=== PATIENT | male | born 1945 | race Caucasian/White ===

== ENCOUNTER 2019-12-23 10:41 | Inpatient (IN) ==
--- NOTE | 2019-12-23 11:29 | Emergency Department Note ---
History of Present Illness General Chief complaint: Illness Time Seen by Provider: 12/23/19 11:09 History of Present Illness 74-year-old male presents emergency department for difficulty breathing. Per EMS, the patient has been having cough and diffificutly breathing for almost 1 week. Patient reports feeling feverish. He reports no chest pain. He reports mild cough. No hemoptysis. No productive sputum. No abdominal pain. No dysuria or hematuria. No nausea vomiting or diarrhea. Past Med/Surg History Medical History CVA (cerebral vascular accident) Diabetes HTN (hypertension) TIA (transient ischemic attack) Surgical History No pertinent past surgical history Social History Feels Safe at Home: Yes Smoking Status: Never smoker Review of Systems A total of 10 systems reviewed and were otherwise negative Physical Exam Vital Signs Vital Signs - 24 hr 12/23/19 10:50 12/23/19 10:58 12/23/19 11:00 Temperature 37.4 C Temperature Source Oral Pulse Rate 70 91 H 75 Pulse Rate from SpO2 Sensor 80 76 Respiratory Rate 18 Blood Pressure 166/76 H Blood Pressure Mean 106 Pulse Oximetry 95 97 97 Oxygen Delivery Method Nasal Cannula Oxygen Flow Rate 2 Sepsis Recent Fever Within 48 Hours Yes Sepsis New/Unexplained Change in Mental Status No Sepsis Action Taken by Nursing No Action Required 12/23/19 11:01 12/23/19 11:10 12/23/19 11:20 Temperature Temperature Source Pulse Rate 72 74 71 Pulse Rate from SpO2 Sensor 71 75 71 Respiratory Rate Blood Pressure 124/63 Blood Pressure Mean 75 Pulse Oximetry 96 91 95 Oxygen Delivery Method Oxygen Flow Rate Sepsis Recent Fever Within 48 Hours Sepsis New/Unexplained Change in Mental Status Sepsis Action Taken by Nursing 12/23/19 11:30 12/23/19 11:40 Temperature Temperature Source Pulse Rate 71 60 Pulse Rate from SpO2 Sensor 72 59 L Respiratory Rate Blood Pressure 166/76 H Blood Pressure Mean 120 Pulse Oximetry 97 96 Oxygen Delivery Method Oxygen Flow Rate Sepsis Recent Fever Within 48 Hours Sepsis New/Unexplained Change in Mental Status Sepsis Action Taken by Nursing Physical Exam GENERAL: He is oriented to person, place, and time. He appears well-developed and well-nourished. He does not appear distressed. HENT: Exam performed. - Head: Normocephalic and atraumatic. - Right Ear: External ear normal. No mastoid tenderness. - Left Ear: External ear normal. No mastoid tenderness. - Mouth/Throat: The oropharynx is clear and moist. No trismus in the jaw. No dental abscesses or uvula swelling. No oropharyngeal exudate or tonsillar abscesses. EYES: Conjunctivae and EOM are normal. Pupils are equal, round, and reactive to light. Right eye exhibits no discharge. Left eye exhibits no discharge. No scleral icterus. NECK: Normal range of motion. Neck supple. No JVD present. No spinous process tenderness present. No carotid bruit present. No rigidity. No tracheal deviation and normal range of motion present. No Brudzinski's sign and no Kernig's sign noted. CV: Normal rate, regular rhythm, normal heart sounds and intact distal pulses. There is no peripheral edema. Palpable radial pulses bue. PULM/CHEST: Effort normal and breath sounds normal. No respiratory distress. No stridor. He has no wheezes. He has no rales. - Chest Wall: He exhibits no tenderness. ABD: The abdomen is soft. Bowel sounds are normal. He has no distension. No mass is present. There is no tenderness. There is no rebound, no guarding, no Dorantes's sign and no tenderness at McBurney's point. Rovsig negative. MUSC/SKEL: Normal range of motion. There is no peripheral edema, tenderness or deformity. LYMPH: No cervical adenopathy. NEURO: He is alert and oriented to person, place, and time. Left-sided weakness, baseline. SKIN: Skin is warm and dry. He is not diaphoretic. PSYCH: He has a normal mood and affect. Behavior is normal. Judgment and thought content normal. Course Course 1115: The patient was evaluated in room B8. A complete history and physical exam was performed. Patient was placed on continuous pulse oximeter as well as cardiac monitoring. Continuous pulse oximeter showed a saturation of 88% on room air. Patient was applied supplemental oxygen via nasal cannula. Status post 2 L nasal cannula patient's oxygen saturation improved. Patient is not in respiratory distress, he is not tachypneic. We will continue to monitor the patient's oxygen saturation and respiratory rate on the supplemental oxygen. Patient was placed in full airborne precautions for possible COVID-19 infection. Cardiac monitoring: An order was placed for continuous cardiac monitoring. The monitor shows a rate of 70 with sinus rhythm 1240: Vital signs stable on 2 L nasal cannula. Patient remains within normal respiratory rate, no tachypnea. Patient's troponin is elevated. EKG shows no ST elevation or ST depressions. Patient is not reporting any current chest pain. Chest x-ray reviewed by me did not show typical COVID-19 findings of groundglass opacities bilaterally. Given this elevated troponin, the patient's hypoxia, patient will be sent for CTA to rule out PE. 1347: Vital signs stable on 2 L supplemental oxygen. CTA shows no PE however it does show occlusion of the left bronchus, mucous plugging versus obstructing lesion. I did discuss these findings with Dr. Gaviota Calvillo hospitalist who agrees to the admission and states he will contact both cardiology for the elevated troponin as well as pulmonology for the need for bronchoscopy. Patient is in agreement to stay in the hospital. Administered Medications Ioversol (Optiray 320 125ml) 104 ml IV ONCE PRN PRN Reason: Interaction Checking Stop: 12/27/19 13:06 Last Admin: 12/23/19 13:11 Dose: 104 ml Documented by: [id number] Discontinued Medications Aspirin (Aspirin) 324 mg PO NOW STA Stop: 12/23/19 12:39 Last Admin: 12/23/19 13:15 Dose: 324 mg Documented by: [id number] Critical Care Time Critical Care Time: Yes Total Critical Care Time: 76 I have personally spent greater than 76 minutes of critical care time in the direct management of this patient. This includes bedside care, interpretation of diagnostic studies, and testing, discussion with consultants, patient, and family members, and other required patient management activities. This 76 minutes is in excess of all separately billable procedures. Medical Decision Making Laboratory Data Result diagrams: 12/23/19 11:05 12/23/19 11:05 Lab Results 12/23/19 12/23/19 12/23/19 Range/Units 11:05 11:05 11:05 WBC 8.54 (4.8-10.8) K/uL RBC 4.79 (4.7-6.1) M/uL Hgb 14.9 (14.0-18.0) g/dL Hct 43.7 (42-52) % MCV 91.2 (80-100) fL MCH 31.1 (25-34) pg MCHC 34.1 (32-36) g/dL RDW Std Deviation 44.9 (36.4-46.3) fL RDW Coeff of Jian 13.6 (11.5-14.5) % Plt Count 164 (130-400) K/uL MPV 11.6 H (7.4-10.4) fL Immature Gran % (Auto) 0.2 % Neut % (Auto) 89.4 % Lymph % (Auto) 8.2 % [place] % (Auto) 2.0 % Eos % (Auto) 0.1 % Baso % (Auto) 0.1 % Immature Gran # (Auto) 0.02 (0.00-0.02) K/uL Neut # (Auto) 7.63 H (1.4-6.5) K/uL Lymph # (Auto) 0.70 L (1.2-3.4) K/uL [place] # (Auto) 0.17 (0.11-0.59) K/uL Eos # (Auto) 0.01 (0-0.5) K/uL Baso # (Auto) 0.01 (0-0.2) K/uL PT 11.7 (9.0-12.0) Seconds INR 1.1 (0.9-1.1) APTT 25.2 (21.0-31.0) Seconds PTT Ratio 0.9 VBG pH VBG pCO2 VBG pO2 VBG HCO3 VBG O2 Saturation VBG Base Excess Barometric Pressure Sodium 138 (136-145) mmol/L Potassium 3.4 L (3.5-5.1) mmol/L Chloride 105 (98-107) mmol/L Carbon Dioxide 27 (21-32) mmol/L Anion Gap 6.0 (3-11) BUN 15 (7-18) mg/dl Creatinine 1.19 (0.6-1.4) mg/dl Est Cr Clr Drug Dosing 69.5 ml/min Est GFR ( Amer) 70.3 Est GFR (Non-Af Amer) 60.7 BUN/Creatinine Ratio 13.0 (10-20) Glucose 141 H (70-99) mg/dl Lactate (0.4-2.0) mmol/L Calcium 8.8 (8.5-10.1) mg/dl Magnesium 2.2 (1.8-2.4) mg/dl Total Bilirubin 0.7 (0.2-1) mg/dl AST 24 (15-37) U/L ALT 30 (12-78) U/L Alkaline Phosphatase 128 H (45-117) U/L Troponin I 0.065 H* (0-0.045) ng/ml Total Protein 7.8 (6.4-8.2) gm/dl Albumin 3.8 (3.4-5.0) gm/dl Globulin 4.0 (2.5-4.0) gm/dl Albumin/Globulin Ratio 1.0 (0.9-2) Procalcitonin (0-0.5) ng/ml COVID-19 PCR (Negative) 12/23/19 12/23/19 12/23/19 Range/Units 11:05 11:05 12:35 WBC (4.8-10.8) K/uL RBC (4.7-6.1) M/uL Hgb (14.0-18.0) g/dL Hct (42-52) % MCV (80-100) fL MCH (25-34) pg MCHC (32-36) g/dL RDW Std Deviation (36.4-46.3) fL RDW Coeff of Jian (11.5-14.5) % Plt Count (130-400) K/uL MPV (7.4-10.4) fL Immature Gran % (Auto) % Neut % (Auto) % Lymph % (Auto) % [place] % (Auto) % Eos % (Auto) % Baso % (Auto) % Immature Gran # (Auto) (0.00-0.02) K/uL Neut # (Auto) (1.4-6.5) K/uL Lymph # (Auto) (1.2-3.4) K/uL [place] # (Auto) (0.11-0.59) K/uL Eos # (Auto) (0-0.5) K/uL Baso # (Auto) (0-0.2) K/uL PT (9.0-12.0) Seconds INR (0.9-1.1) APTT (21.0-31.0) Seconds PTT Ratio VBG pH VBG pCO2 VBG pO2 VBG HCO3 VBG O2 Saturation VBG Base Excess Barometric Pressure Sodium (136-145) mmol/L Potassium (3.5-5.1) mmol/L Chloride (98-107) mmol/L Carbon Dioxide (21-32) mmol/L Anion Gap (3-11) BUN (7-18) mg/dl Creatinine (0.6-1.4) mg/dl Est Cr Clr Drug Dosing ml/min Est GFR ( Amer) Est GFR (Non-Af Amer) BUN/Creatinine Ratio (10-20) Glucose (70-99) mg/dl Lactate 1.5 (0.4-2.0) mmol/L Calcium (8.5-10.1) mg/dl Magnesium (1.8-2.4) mg/dl Total Bilirubin (0.2-1) mg/dl AST (15-37) U/L ALT (12-78) U/L Alkaline Phosphatase (45-117) U/L Troponin I (0-0.045) ng/ml Total Protein (6.4-8.2) gm/dl Albumin (3.4-5.0) gm/dl Globulin (2.5-4.0) gm/dl Albumin/Globulin Ratio (0.9-2) Procalcitonin 0.05 (0-0.5) ng/ml COVID-19 PCR NEGATIVE (Negative) 12/23/19 12/23/19 Range/Units 12:35 13:24 WBC (4.8-10.8) K/uL RBC (4.7-6.1) M/uL Hgb (14.0-18.0) g/dL Hct (42-52) % MCV (80-100) fL MCH (25-34) pg MCHC (32-36) g/dL RDW Std Deviation (36.4-46.3) fL RDW Coeff of Jian (11.5-14.5) % Plt Count (130-400) K/uL MPV (7.4-10.4) fL Immature Gran % (Auto) % Neut % (Auto) % Lymph % (Auto) % [place] % (Auto) % Eos % (Auto) % Baso % (Auto) % Immature Gran # (Auto) (0.00-0.02) K/uL Neut # (Auto) (1.4-6.5) K/uL Lymph # (Auto) (1.2-3.4) K/uL [place] # (Auto) (0.11-0.59) K/uL Eos # (Auto) (0-0.5) K/uL Baso # (Auto) (0-0.2) K/uL PT (9.0-12.0) Seconds INR (0.9-1.1) APTT (21.0-31.0) Seconds PTT Ratio VBG pH Cancelled 7.34 L VBG pCO2 Cancelled 49 VBG pO2 Cancelled 43 VBG HCO3 Cancelled 26 VBG O2 Saturation Cancelled 74.0 VBG Base Excess Cancelled -0.8 Barometric Pressure Cancelled 733.0 Sodium (136-145) mmol/L Potassium (3.5-5.1) mmol/L Chloride (98-107) mmol/L Carbon Dioxide (21-32) mmol/L Anion Gap (3-11) BUN (7-18) mg/dl Creatinine (0.6-1.4) mg/dl Est Cr Clr Drug Dosing ml/min Est GFR ( Amer) Est GFR (Non-Af Amer) BUN/Creatinine Ratio (10-20) Glucose (70-99) mg/dl Lactate (0.4-2.0) mmol/L Calcium (8.5-10.1) mg/dl Magnesium (1.8-2.4) mg/dl Total Bilirubin (0.2-1) mg/dl AST (15-37) U/L ALT (12-78) U/L Alkaline Phosphatase (45-117) U/L Troponin I (0-0.045) ng/ml Total Protein (6.4-8.2) gm/dl Albumin (3.4-5.0) gm/dl Globulin (2.5-4.0) gm/dl Albumin/Globulin Ratio (0.9-2) Procalcitonin (0-0.5) ng/ml COVID-19 PCR (Negative) Imaging Data Radiologist's Impression: CHEST CTA for PULMONARY ARTERIES CT DOSE: 597.75 mGy.cm HISTORY: Cough. Shortness of breath. TECHNIQUE: Multiaxial CT images of the chest were performed following the intravenous administration of contrast to evaluate the pulmonary arteries. Maximal intensity projection images were also obtained. A dose lowering technique was utilized adhering to the principles of ALARA. COMPARISON STUDY: None. FINDINGS: Mild calcified plaque within the normal caliber thoracic aorta. No evidence for an aortic dissection. Trace pericardial effusion. No pleural effusions. No filling defects within the pulmonary arteries to suggest pulmonary embolus. Limited views] demonstrate a normal spleen and left adrenal gland. 1 cm fat-containing lesion within the right adrenal gland favors a benign myelolipoma. Cluster of perihepatic partially calcified nodules abutting the anterior segment of the right hepatic lobe. Dominant nodule measures 3.8 cm. These are indeterminate but likely benign. These result in mass effect along the right hepatic lobe. The heart is borderline enlarged. Subcentimeter mediastinal bilateral hilar lymph nodes do not meet CT criteria for pathologic involvement. The esophagus is normal in caliber. No suspicious lytic or blastic osseous lesions. No pneumothorax. Focal opacification of the left lower lobe bronchus with partial opacification of the distal left lower lobe bronchi. There is mild diffuse bronchial wall thickening. Patchy airspace consolidation seen within the base of the left lower lobe and mild volume loss within the left lower lobe in comparison to the right. Focal linear density within the right lower lobe posteriorly. A 4 mm nodule within the right lower lobe on image 96 of 256. IMPRESSION: 1. No evidence for pulmonary embolus. 2. Focal opacification of the left lower lobe bronchus with partial opacification of the distal left lower lobe bronchi. This favors mucous plugging. However, given the volume loss within the left lower lobe, an occult obstructing lesion cannot be excluded. Therefore, bronchoscopy recommended for further evaluation. 3. Patchy airspace consolidations within the base of the left lower lobe which may represent atelectasis or pneumonia. This could be secondary to aspiration in conjunction with the partially opacified left lower lobe bronchi. 4. Linear densities within the base of the right lower lobe favor atelectasis. 5. Trace pericardial effusion. 6. Partially calcified right upper quadrant nodules abutting the anterior segment of the right hepatic lobe. These are indeterminate but likely benign. 7. A 4 mm indeterminate pulmonary nodule within the right lower lobe. Please refer to the chart below for recommended follow-up. Please refer to below summary of Fleischner criteria recommendations for follow- up of incidental CT nodules (Joy Morris, Guidelines for management of small pulmonary nodules detected on CT scans: A statement from the Fleischner Society, Radiology 237: [phone].) SOLID NODULES Solitary nodule size: <6 mm * Low risk patients: no follow-up needed * high risk patients: optional CT at 12 months Solitary nodule size: 6-8 mm * Low risk patients: follow-up at 6-12 months, then consider further follow-up at 18-24 months * high risk patients: initial follow-up CT at 6-12 months and then at 18-24 months if no change Solitary nodule size: >8 mm * either low or high risk patients - consider follow-up CT at 3 months, and/or CT-PET, and/or biopsy Multiple nodules size: <6 mm * Low risk patients: no routine follow-up * high risk patients: optional CT at 12 months Multiple nodules size: 6-8 mm * Low risk patients: follow-up at 3-6 months, then consider further follow-up at 18-24 months * high risk patients: follow-up at 3-6 months, then at 18-24 months if no change Multiple nodules size: >8 mm * Low risk patients: follow-up at 3-6 months, then consider further follow-up at 18-24 months * high risk patients: follow-up at 3-6 months, then at 18-24 months if no change Note: newly detected indeterminate nodule in persons 35 years of age or older. * Low risk patients: minimal or absent history of smoking and/or other known risk factors * high risk patients: history of smoking or of other known risk factors (e.g. first degree relative with lung cancer, or exposure to asbestos, radon, uranium) * if a nodule up to 8 mm is partly solid or is ground glass further follow-up is required after 24 months to exclude possible slow growing adenocarcinoma (ARISTIDES) SUBSOLID NODULES Solitary pure ground-glass nodule * nodule size <6 mm - no CT follow-up required * nodule size >=6 mm - follow-up CT at 6-12 months, then every 2 years until 5 years Solitary part-solid nodule * nodule size <6 mm - no CT follow-up required * nodule size >=6 mm - follow-up CT at 3-6 months. If unchanged, and solid component remains <6 mm, then annual follow-up for 5 years Multiple subsolid nodules * nodule size <6 mm - follow-up CT at 3-6 months, consider further follow-up at 2 and 4 years if stable * nodule size >=6 mm - follow-up CT at 3-6 months, subsequent management based on the most suspicious nodule(s) ACT 112: Negative or not required by law. Electronically signed by: Sander Kelly M.D. 12/23/2019 1:27 PM Dictated: 12/23/19 1314 Transcribed: 12/23/19 1314 XR chest 1V portable HISTORY: SEPSIS COMPARISON: None. FINDINGS: No pneumothorax. No pleural effusions. The heart is borderline en larged. This may be exaggerated by the low lung volumes. The right lung is clear. No evidence for pulmonary edema. Increased markings within the left lung base. IMPRESSION: Increased markings within the left lung base favor atelectasis given the low lung volumes. A pneumonia could also have a similar appearance in the appropriate clinical setting. ACT 112: Negative or not required by law. Electronically signed by: Sander Kelly M.D. 12/23/2019 12:45 PM Dictated: 12/23/19 1245 Transcribed: 12/23/19 1245 ECG Data Indication: + SOB/dyspnea Rate (beats per minute): 74 Rhythm: + normal sinus ECG Intervals/blocks: + Normal QRS, + Normal CT and + Normal QT-c ECG ST segments: + Normal ST segments MDM Narrative 1115: The patient was evaluated in room B8. A complete history and physical exam was performed. Patient was placed on continuous pulse oximeter as well as cardiac monitoring. Continuous pulse oximeter showed a saturation of 88% on room air. Patient was applied supplemental oxygen via nasal cannula. Status post 2 L nasal cannula patient's oxygen saturation improved. Patient is not in respiratory distress, he is not tachypneic. We will continue to monitor the patient's oxygen saturation and respiratory rate on the supplemental oxygen. Patient was placed in full airborne precautions for possible COVID-19 infection. Cardiac monitoring: An order was placed for continuous cardiac monitoring. The monitor shows a rate of 70 with sinus rhythm 1240: Vital signs stable on 2 L nasal cannula. Patient remains within normal respiratory rate, no tachypnea. Patient's troponin is elevated. EKG shows no ST elevation or ST depressions. Patient is not reporting any current chest pain. Chest x-ray reviewed by me did not show typical COVID-19 findings of groundglass opacities bilaterally. Given this elevated troponin, the patient's hypoxia, patient will be sent for CTA to rule out PE. 1347: Vital signs stable on 2 L supplemental oxygen. CTA shows no PE however it does show occlusion of the left bronchus, mucous plugging versus obstructing lesion. I did discuss these findings with Dr. Meek [facility] hospitalist who agrees to the admission and states he will contact both cardiology for the elevated troponin as well as pulmonology for the need for bronchoscopy. Patient is in agreement to stay in the hospital. Impression & Plan Hypoxia Discharge Plan Visit Data Chief Complaint: Illness ED Provider: Cedric Kapoor Discharge Problem: Hypoxia Patient Disposition: Being Evaluated by Hospitalist Forms Stand Alone Forms: My [facility] Referrals Referrals: Jones Chirinos [Primary Care Provider] -
[2019-12-23 11:45] LABS: Basophils # (auto) 0.01 K/uL (0-0.2); Basophils % (auto) 0.1 %; Eosinophils # (auto) 0.01 K/uL (0-0.5); Eosinophils % (auto) 0.1 %; Hematocrit (blood only) 43.7 % (42-52); Hemoglobin 14.9 g/dL (14.0-18.0); Immature Granulocytes # (auto) 0.02 K/uL (0.00-0.02); Immature Granulocytes % (auto) 0.2 %; Lymphocytes % (auto) 8.2 %; Mean Corpuscular Hemoglobin 31.1 pg (25-34); Mean Corpuscular Hgb Conc 34.1 g/dL (32-36); Mean Corpuscular Volume 91.2 fL (80-100); Mean Platelet Volume 11.6 fL (7.4-10.4); Monocytes # (auto) 0.17 K/uL (0.11-0.59); Neutrophils # (auto) 7.63 K/uL (1.4-6.5); Neutrophils % (auto) 89.4 %; Platelet Count 164 K/uL (130-400); RDW Coefficient of Variation 13.6 % (11.5-14.5); RDW Standard Deviation 44.9 fL (36.4-46.3); Red Blood Count 4.79 M/uL (4.7-6.1); White Blood Count 8.54 K/uL (4.8-10.8)
[2019-12-23 12:02] LABS: Albumin Level 3.8 gm/dl (3.4-5.0); Calcium 8.8 mg/dl (8.5-10.1); Creatinine Clr Calc Pharmacy 69.5 ml/min; Est GFR (African American) 70.3; Est GFR (Non-African American) 60.7; Magnesium 2.2 mg/dl (1.8-2.4); Potassium 3.4 mmol/L (3.5-5.1)
[2019-12-23 12:05] LABS: INR 1.1 (0.9-1.1); Partial Thromboplastin Ratio 0.9; Partial Thromboplastin Time 25.2 Seconds (21.0-31.0); Prothrombin Time 11.7 Seconds (9.0-12.0)
[2019-12-23 12:09] LABS: Bilirubin,Total 0.7 mg/dl (0.2-1); Total Protein 7.8 gm/dl (6.4-8.2); Troponin I 0.065 ng/ml (0-0.045)
[2019-12-23] MEDS ORDERED: ASPIRIN CHEW 324 MG PO STA (12:38)
--- NOTE | 2019-12-23 12:47 | XRay Report ---
XR chest 1V portable HISTORY: SEPSIS COMPARISON: None. FINDINGS: No pneumothorax. No pleural effusions. The heart is borderline enlarged. This may be exagge rated by the low lung volumes. The right lung is clear. No evidence for pulmonary edema. Increased ma rkings within the left lung base. IMPRESSION: Increased markings within the left lung base favor atelectasis given the low lung volumes. A pneumoni a could also have a similar appearance in the appropriate clinical setting. ACT 112: Negative or not required by law. Electronically signed by: Sander Kelly M.D. 12/23/2019 12:45 PM
[2019-12-23] MEDS ORDERED: OPTIRAY 320 125ml IV PRN (13:07)
--- NOTE | 2019-12-23 13:28 | CT Scan Report ---
CHEST CTA for PULMONARY ARTERIES CT DOSE: 597.75 mGy.cm HISTORY: Cough. Shortness of breath. TECHNIQUE: Multiaxial CT images of the chest were performed following the intravenous administration of contrast to evaluate the pulmonary arteries. Maximal intensity projection images were also obtaine d. A dose lowering technique was utilized adhering to the principles of ALARA. COMPARISON STUDY: None. FINDINGS: Mild calcified plaque within the normal caliber thoracic aorta. No evidence for an aortic d issection. Trace pericardial effusion. No pleural effusions. No filling defects within the pulmonary arteries to suggest pulmonary embolus. Limited views] demonstrate a normal spleen and left adrenal gl and. 1 cm fat-containing lesion within the right adrenal gland favors a benign myelolipoma. Cluster o f perihepatic partially calcified nodules abutting the anterior segment of the right hepatic lobe. Do minant nodule measures 3.8 cm. These are indeterminate but likely benign. These result in mass effect along the right hepatic lobe. The heart is borderline enlarged. Subcentimeter mediastinal bilateral hilar lymph nodes do not meet CT criteria for pathologic involvement. The esophagus is normal in jose l grazyna. No suspicious lytic or blastic osseous lesions. No pneumothorax. Focal opacification of the left lower lobe bronchus with partial opacification of the distal left lower lobe bronchi. There is mild diffuse bronchial wall thickening. Patchy airspace consolidation seen within the base of the left low er lobe and mild volume loss within the left lower lobe in comparison to the right. Focal linear dens ity within the right lower lobe posteriorly. A 4 mm nodule within the right lower lobe on image 96 of 256. IMPRESSION: 1. No evidence for pulmonary embolus. 2. Focal opacification of the left lower lobe bronchus with partial opacification of the distal left lower lobe bronchi. This favors mucous plugging. However, given the volume loss within the left lower lobe, an occult obstructing lesion cannot be excluded. Therefore, bronchoscopy recommended for furth er evaluation. 3. Patchy airspace consolidations within the base of the left lower lobe which may represent atelecta sis or pneumonia. This could be secondary to aspiration in conjunction with the partially opacified l eft lower lobe bronchi. 4. Linear densities within the base of the right lower lobe favor atelectasis. 5. Trace pericardial effusion. 6. Partially calcified right upper quadrant nodules abutting the anterior segment of the right hepati c lobe. These are indeterminate but likely benign. 7. A 4 mm indeterminate pulmonary nodule within the right lower lobe. Please refer to the chart below for recommended follow-up. Please refer to below summary of Fleischner criteria recommendations for follow-up of incidental CT n odules (Joy Morris, Guidelines for management of small pulmonary nodules detected on CT scans: A fani friend from the Fleischner Society, Radiology 237: [phone].) SOLID NODULES Solitary nodule size: <6 mm * Low risk patients: no follow-up needed * high risk patients: optional CT at 12 months Solitary nodule size: 6-8 mm * Low risk patients: follow-up at 6-12 months, then consider further follow-up at 18-24 months * high risk patients: initial follow-up CT at 6-12 months and then at 18-24 months if no change Solitary nodule size: >8 mm * either low or high risk patients - consider follow-up CT at 3 months, and/or CT-PET, and/or biopsy Multiple nodules size: <6 mm * Low risk patients: no routine follow-up * high risk patients: optional CT at 12 months Multiple nodules size: 6-8 mm * Low risk patients: follow-up at 3-6 months, then consider further follow-up at 18-24 months * high risk patients: follow-up at 3-6 months, then at 18-24 months if no change Multiple nodules size: >8 mm * Low risk patients: follow-up at 3-6 months, then consider further follow-up at 18-24 months * high risk patients: follow-up at 3-6 months, then at 18-24 months if no change Note: newly detected indeterminate nodule in persons 35 years of age or older. * Low risk patients: minimal or absent history of smoking and/or other known risk factors * high risk patients: history of smoking or of other known risk factors (e.g. first degree relative with lung cancer, or exposure to asbestos, radon, uranium) * if a nodule up to 8 mm is partly solid or is ground glass further follow-up is required after 24 m onths to exclude possible slow growing adenocarcinoma (ARISTIDES) SUBSOLID NODULES Solitary pure ground-glass nodule * nodule size <6 mm - no CT follow-up required * nodule size >=6 mm - follow-up CT at 6-12 months, then every 2 years until 5 years Solitary part-solid nodule * nodule size <6 mm - no CT follow-up required * nodule size >=6 mm - follow-up CT at 3-6 months. If unchanged, and solid component remains <6 mm, then annual follow-up for 5 years Multiple subsolid nodules * nodule size <6 mm - follow-up CT at 3-6 months, consider further follow-up at 2 and 4 years if sta ble * nodule size >=6 mm - follow-up CT at 3-6 months, subsequent management based on the most suspiciou s nodule(s) ACT 112: Negative or not required by law. Electronically signed by: Sander Kelly M.D. 12/23/2019 1:27 PM
[2019-12-23 13:45] LABS: Base Excess VBG -0.8 mEq/L; pH VBG 7.34 (7.36-7.41)
--- NOTE | 2019-12-23 14:07 | History & Physical Report ---
Date of Service December 23, 2019 Assessment & Plan (1) Community acquired pneumonia: IV ceftriaxone and azithromycin Aspiration precaution with SLT assessment given prior stroke he is at risk of this although given no overt aspirations noticed by his sister and in [facility] not specifically treating for aspiration pneumonia Consult pulm given concern for mass vs. 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 Consider Brain MRI if not improving with treatment for PNA. (3) Hypoxia: without respiratory failure. Suspected to be due to CAP as above (4) History of CVA (cerebrovascular accident): ASA, simvastatin (5) History of myocardial infarction: ASA, metoprolol, lisiniopril, simvastatin (6) Type 2 diabetes mellitus: Hold glipizide HbA1C in AM BSG ACHS with insulin correction only, no need for carb coverage with current glucose measurements. (7) Hypertension: Continue lisinopril -> reduce dose to 20mg BID as TID above maximum recommended dose Hold HCTZ pending UA and repeat BMP in AM (8) Benign prostatic hyperplasia: Continue tamsulosin and finasteride UA pending (9) Osteoarthritis: Noted history of this PT/OT evals (10) Dementia: Continue memantine 10mg BID (11) DVT prophylaxis: Hold off chemical prophylaxis due to possible need for bronchoscopy No SCDs due to falls risk with high risk of delirium Admission and Anticipated Discharge Date Admission Date: 12/23/2019 History of Present Illness Chief Complaint: Generalized weakness Primary Care Provider: Jones Chirinos Michael Denny is a 74 year old male who presents to the ER with generalized weakness after his sister was unable to get him off the toilet this morning. The patient was seen in the ER and no family present at the time of admission. He was unsure how he came to the ER, thinks his sister brought him in but isn't completely sure. Notes he has been living with her on and off for some time. He notes he is here because she was worried about him although he reports feeling well and notes no current issues. No shortness of breath, cough, fever, chills. Discussed with his VINICIO Wilde. She reports calling EMS as patient was unable to get off the toilet this morning. Appeared to be generally weak. Went clammy and pale with temperature of 99.4. He had been having a "croupy cough" for the last couple of days. usually can walk around but uses a walker. Transfers without assistance. As a background [facility] [place] , exposed to agent orange. In 2003 while undergoing repair for a ?liver laceration he had a heart attack and cardiac arrest on the table apparently requiring open heart massage. Stroke in September 2014 with residual left sided numbness and weakness, possibly vision loss from same stroke. He was living in [place] at the time but due to dementia had to move up to live with his sister in [place], [place] in February the same year. Generally has good strength but difficulty concentrating and short term memory loss. Recently now living with their cousin in [place] as his sister was recently admitted to hospital with snyder and is recovering from this but also the main home health caregiver for Michael. No fall for the last 6 months. She report he is for full code and this was confirmed with the patient he wishes to have CPR in the event of a cardiac arrest. [facility] and had normal lab work but hasnt had any paperwork for that. Telehealth visit. Undergoing workup with Dr Chirinos and possible need for TURP for BPH Allergies Allergy/AdvReac Type Severity Reaction Status Date / Time No Known Allergies Allergy Unverified 12/23/19 14:14 Home Medications Home Medications Medication Instructions Recorded Confirmed Type Calm Tabs 4 tab PO HS 12/23/19 12/23/19 History Herba Vision Lutein & Bilberry 1 cap PO BID 12/23/19 12/23/19 History 6mg/20mg Prostavan Prostate Support Gel 1 cap PO QDL 12/23/19 12/23/19 History Capsules aspirin 81 mg PO QAM 12/23/19 12/23/19 History chlorpheniramine-dextromethorp 1 tab PO Q6H PRN 12/23/19 12/23/19 History [Coricidin HBP Cough and Cold] docusate sodium [Colace] 100 mg PO BID 12/23/19 12/23/19 History finasteride 5 mg PO QDL 12/23/19 12/23/19 History glipizide 2.5 mg PO BID 12/23/19 12/23/19 History hydrochlorothiazide 25 mg PO QDL 12/23/19 12/23/19 History latanoprost 1 drp OPB HS 12/23/19 12/23/19 History lisinopril 20 mg PO TID 12/23/19 12/23/19 History melatonin 10 mg PO HS 12/23/19 12/23/19 History memantine 10 mg PO BID 12/23/19 12/23/19 History multivitamin 1 tab PO QAM 12/23/19 12/23/19 History simvastatin 40 mg PO HS 12/23/19 12/23/19 History tamsulosin 0.8 mg PO HS 12/23/19 12/23/19 History timolol maleate 1 drp OPB QAM 12/23/19 12/23/19 History metoprolol tartrate 25 mg PO BID 12/24/19 12/24/19 History Past Med/Surg History Medical History (Updated 12/24/19 @ 11:41 by Alfredito Meek MD) Age-related macular degeneration Benign prostatic hyperplasia CVA (cerebral vascular accident) Hypertension Liver laceration Osteoarthritis TIA (transient ischemic attack) Type 2 diabetes mellitus Surgical History No pertinent past surgical history Social History Preferred Language: Andorran Small Lot Operator 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 Other Information That Helps Us Care for You: No Feels Safe at Home: Yes Smoking Status: Never smoker Do You Dip or Chew Tobacco: No ; Second Hand Exposure: Yes ; Hx Alcohol Use: Yes Alcohol type: beer Hx Substance Use: No Review of Systems Review of Systems: All systems reviewed & are unremarkable except as noted in HPI & below Physical Exam Constitutional: WD/WN, vitals as above Eyes: PERRL, conjunctivae normal, anicteric sclerae ENMT: external ear and nose normal, oropharynx normal Neck: trachea midline, no thyromegaly Respiratory: normal respiratory effort; no respiratory distress Auscultation: + diminished lung sounds (left lung base); no crackles, no rales, no rhonchi and no wheezes Cardiovascular: RRR, no murmur, no edema Gastrointestinal (Abdomen): Inspection/Auscultation: normal bowel sounds Percussion/Palpation: abdomen soft; abdomen nontender, no guarding and abdomen not rigid Musculoskeletal: Head/Neck/Chest: normocephalic and head atraumatic Skin: no rashes, warm and dry Neurologic: moves all extremities, + focal motor deficit (LUE weakness), awake and + confused Psychiatric: Orientation: alert and oriented to person (self); + not oriented to place (knows he is in hospital) and + not oriented to time Eye Contact: good eye contact Genitourinary: no CVA tenderness Results & Data Results & Data ([facility]) Vital Signs (Past 12 Hours) Vital Signs Temp Pulse Resp BP Pulse Ox 12/23/19 11:40 60 96 12/23/19 11:30 71 166/76 H 97 12/23/19 11:20 71 95 12/23/19 11:10 74 91 12/23/19 11:01 72 124/63 96 12/23/19 11:00 75 97 12/23/19 10:58 91 H 97 12/23/19 10:50 37.4 C 70 18 166/76 H 95 Diagnostic Findings XR chest 1V portable IMPRESSION: Increased markings within the left lung base favor atelectasis given the low lung volumes. A pneumonia could also have a similar appearance in the appropriate clinical setting. CHEST CTA for PULMONARY ARTERIES IMPRESSION: 1. No evidence for pulmonary embolus. 2. Focal opacification of the left lower lobe bronchus with partial opacifi cation of the distal left lower lobe bronchi. This favors mucous plugging. However, given the volume loss within the left lower lobe, an occult obstructing lesion cannot be excluded. Therefore, bronchoscopy recommended for further evaluation. 3. Patchy airspace consolidations within the base of the left lower lobe which may represent atelectasis or pneumonia. This could be secondary to aspiration in conjunction with the partially opacified left lower lobe bronchi. 4. Linear densities within the base of the right lower lobe favor atelectasis. 5. Trace pericardial effusion. 6. Partially calcified right upper quadrant nodules abutting the anterior segment of the right hepatic lobe. These are indeterminate but likely benign. 7. A 4 mm indeterminate pulmonary nodule within the right lower lobe. Please refer to the chart below for recommended follow-up. ECG Indication: altered mental status Rate (beats per minute): 74 Rhythm: normal sinus Findings: no acute ischemic change Comparison ECG Date: no prior available Code Status & VTE Plan Code Status Full as discussed with his POA VTE Prophylaxis Plan VTE Prophylaxis will be ordered: Yes PG Care Time/CCT Total # of Minutes Spent Total Time Spent with Patient: Total time spent is greater than 50% in coordination of care (as documented) at patient's floor/unit and/or counseling patient: Coding Level of Care Code 83497 Initial Inpt Care Lvl 3 Diagnoses Age-related macular degeneration H35.30 History of myocardial infarction I25.2 Benign prostatic hyperplasia N40.0 Type 2 diabetes mellitus E11.9 Community acquired pneumonia J18.9 Generalized weakness R53.1 Hypoxia R09.02 History of CVA (cerebrovascular accident) Z86.73 Hypertension I10 Osteoarthritis M19.90 Dementia F03.90 DVT prophylaxis Z29.9
[2019-12-23] MEDS ORDERED: cefTRIAXone SODIUM 2,000 MG/70 ML BAG IV ONE (14:30)
[2019-12-23 14:49] LABS: Appearance Urine Clear (Clear); Bacteria Urine Automated Negative (Negative); Bilirubin Urine Negative (Negative); Blood Urine 2+ (Negative); Color Urine Yellow; Epithelial Cell Urine Auto 20-30 /lpf (0-5); Glucose Urine UA Negative (Negative); Ketones Urine 1+ (Negative); Leukocyte Esterase Urine Negative (Negative); Nitrite Urine Negative (Negative); Protein Urine 2+ (Negative); RBC Urine Automated 0-4 /hpf (0-4); Specific Gravity Urine > 1.045 (1.000-1.030); Urobilinogen Urine Negative (Negative)
[2019-12-23] MEDS ORDERED: AZITHROMYCIN 500 MG in DEXTROSE 5% 250 ML IV ONE (15:00)
[2019-12-23] MEDS ORDERED: ALUMINUM/MAGNESIUM SUSP 30 ML UDC PO PRN (15:09)
[2019-12-23] MEDS ORDERED: ACETAMINOPHEN 325 MG TAB PO PRN (15:09)
[2019-12-23] MEDS ORDERED: ONDANSETRON INJ 2 MG/ML 2 ML VIAL IV PRN (15:09)
[2019-12-23] MEDS ORDERED: NITROGLYCERIN SL 0.4 MG/TAB TAB SL PRN (15:09)
[2019-12-23] MEDS ORDERED: MAGNESIUM HYDROXIDE SUSP 30 ML UDC PO PRN (15:09)
[2019-12-23] MEDS ORDERED: POLYETHYLENE (MIRALAX) 17 GM PACK PO PRN (15:09)
[2019-12-23] MEDS ORDERED: CARBOHYDRATES FOR HYPOGLYCEMIA PO PRN (15:12)
[2019-12-23] MEDS ORDERED: DEXTROSE 50% 50 ML SYRINGE IV PRN (15:12)
[2019-12-23] MEDS ORDERED: GLUCAGON FOR INJ 1 MG VIAL SQ PRN (15:12)
[2019-12-23] MEDS ORDERED: GLUCOSE 40% GEL 15 GM TUBE PO PRN (15:12)
[2019-12-23] MEDS ORDERED: GLUCOSE 10 TABS/TUBE PO PRN (15:12)
[2019-12-23] MEDS: INSULIN ASPART 100 UNITS/ML 3 ML PEN SC SCH ×2 (17:21→21:03)
--- NOTE | 2019-12-23 17:44 | CT Scan Report ---
CT head/brain wo con CLINICAL HISTORY: 74 years-old Male with generalized weakness, prior CVA ?acute CVA. Acute generaliz ed weakness with strokelike symptoms TECHNIQUE: Multiple axial CT images of the head were obtained without contrast. A dose lowering tech nique was utilized adhering to the principles of ALARA. CT DOSE: 853.38 mGy.cm COMPARISON: None. FINDINGS: No acute intracranial hemorrhage, midline shift, intracranial mass, hydrocephalus, territorial ischem ia or abnormal extra-axial collection. Mild age-related involutional changes. Mild to moderate patchy white matter hypodensities suggest probable chronic microvascular ischemic disease. Ill-defined 8 mm hypodense focus of the right thalamus, image 14 series 2. Study is mildly motion degraded. The calvarium is intact. The paranasal sinuses, mastoid air cells, and middle ear cavities are clear . IMPRESSION: 1. Mildly motion degraded exam. 2. No acute intracranial hemorrhage, midline shift or territorial infarct 3. Patchy white matter hypodensities are nonspecific however suggests probable chronic microvascular ischemic disease. 4. Subcentimeter hypodense focus of the right thalamus is suggestive of an age-indeterminate lacunar infarct. ACT 112: Negative or not required by law. The above report was generated using voice recognition software. It may contain grammatical, syntax o r spelling errors. Electronically signed by: Arnold Lopez M.D. 12/23/2019 5:43 PM
[2019-12-23] MEDS: DOCUSATE SODIUM 100 MG CAP PO SCH (20:16)
[2019-12-23] MEDS: MELATONIN 3 MG TAB PO SCH (20:17)
[2019-12-23] MEDS: LATANOPROST 0.005% OP SOLN 2.5 ML BTL OPB SCH (20:19)
[2019-12-23] MEDS: TAMSULOSIN HCL 0.4 MG CAP PO SCH (20:19)
[2019-12-23] MEDS: MEMANTINE HCL 10 MG TAB PO SCH (20:19)
[2019-12-23] MEDS: lisinopriL 20 MG TAB PO SCH (20:20)
[2019-12-23] MEDS: SIMVASTATIN 40 MG TAB PO SCH (20:20)
[2019-12-23] MEDS ORDERED: ENOXAPARIN INJ 40 MG/0.4 ML SYR SQ SCH (21:00)
[2019-12-23] MEDS ORDERED: [UNRECOGNIZED DRUG - OTHER] PO SCH (21:00)
[2019-12-23] MEDS ORDERED: BILBERRY PO SCH (21:00)
[2019-12-23] MEDS ORDERED: CALM PO SCH (21:00)
[2019-12-23] MEDS ORDERED: LUTEIN PO SCH (21:00)
--- NOTE | 2019-12-23 22:52 | Electrocardiogram Report ---
Test Reason : Blood Pressure : / mmHG Vent. Rate : 074 BPM Atrial Rate : 074 BPM P-R Int : 178 ms QRS Dur : 116 ms QT Int : 422 ms P-R-T Axes : 023 000 065 degrees QTc Int : 468 ms Normal sinus rhythm Normal ECG No previous ECGs available Confirmed by Rolf Dent ([id number]) on 12/23/2019 10:52:18 PM Referred By: REFERRED SELF Confirmed By:Rolf Dent
[2019-12-23] MEDS: POTASSIUM CHLORIDE 40 MEQ in SODIUM CHLORIDE 0.9% 1000ML 1,000 ML IV SCH (23:31)
[2019-12-24 06:24] LABS: Basophils # (auto) 0.01 K/uL (0-0.2); Basophils % (auto) 0.1 %; Eosinophils # (auto) 0.05 K/uL (0-0.5); Eosinophils % (auto) 0.6 %; Hematocrit (blood only) 42.7 % (42-52); Hemoglobin 14.4 g/dL (14.0-18.0); Immature Granulocytes # (auto) 0.02 K/uL (0.00-0.02); Immature Granulocytes % (auto) 0.2 %; Lymphocytes # (auto) 1.27 K/uL (1.2-3.4); Mean Corpuscular Hemoglobin 30.8 pg (25-34); Mean Corpuscular Hgb Conc 33.7 g/dL (32-36); Mean Corpuscular Volume 91.2 fL (80-100); Mean Platelet Volume 11.4 fL (7.4-10.4); Monocytes # (auto) 0.88 K/uL (0.11-0.59); Monocytes % (auto) 9.7 %; Neutrophils # (auto) 6.84 K/uL (1.4-6.5); Neutrophils % (auto) 75.4 %; Platelet Count 141 K/uL (130-400); RDW Coefficient of Variation 13.8 % (11.5-14.5); RDW Standard Deviation 45.9 fL (36.4-46.3); Red Blood Count 4.68 M/uL (4.7-6.1); White Blood Count 9.07 K/uL (4.8-10.8)
[2019-12-24 06:41] LABS: Estimated Average Glucose 114 mg/dl; Hemoglobin A1C 5.6 % (4.5-5.6)
[2019-12-24 06:47] LABS: BUN Creatinine Ratio 15.8 (10-20); Calcium 8.8 mg/dl (8.5-10.1); Creatinine Clr Calc Pharmacy 82.5 ml/min; Est GFR (African American) 85.7; Potassium 3.4 mmol/L (3.5-5.1)
[2019-12-24 06:51] LABS: Troponin I 0.041 ng/ml (0-0.045)
[2019-12-24] MEDS: INSULIN ASPART 100 UNITS/ML 3 ML PEN SC SCH ×4 (07:57→21:30)
[2019-12-24] MEDS: TIMOLOL GFS 0.5% OPH SOLN 74 DROPS/5 ML BTL OPB SCH (08:15)
[2019-12-24] MEDS: AZITHROMYCIN 250 MG TAB PO SCH (08:15)
[2019-12-24] MEDS: MEMANTINE HCL 10 MG TAB PO SCH ×2 (08:16→20:15)
[2019-12-24] MEDS: MULTIVITAMIN TAB PO SCH (08:16)
[2019-12-24] MEDS: lisinopriL 20 MG TAB PO SCH ×2 (08:16→20:13)
[2019-12-24] MEDS: guaiFENesin 600 MG TABCR PO SCH ×2 (08:16→20:13)
[2019-12-24] MEDS: ASPIRIN 81 MG ECTAB PO SCH (08:17)
[2019-12-24] MEDS: DOCUSATE SODIUM 100 MG CAP PO SCH ×2 (08:17→20:14)
[2019-12-24] MEDS: METOPROLOL TARTRATE 25 MG TAB PO SCH ×2 (10:20→20:15)
[2019-12-24] MEDS: POTASSIUM CHLORIDE 40 MEQ in SODIUM CHLORIDE 0.9% 1000ML 1,000 ML IV SCH (10:21)
[2019-12-24] MEDS ORDERED: [UNRECOGNIZED DRUG - OTHER] PO SCH (11:30)
[2019-12-24] MEDS: FINASTERIDE 5 MG TAB PO SCH (11:34)
--- NOTE | 2019-12-24 13:37 | Hospitalist Progress Note ---
Date of Service December 24, 2019 Assessment & Plan (1) Community acquired pneumonia: CT chest on 12/22 showed left lower lobe bronchus with partial opacification of the distal left lower lobe bronchi. - Continue IV ceftriaxone and azithromycin - Pulmonology consult pending given possible mucus plugging. 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 - Incentive spirometry, flutter valve, guaifenesin (2) Generalized weakness: Suspect due to CAP as above. (3) History of CVA (cerebrovascular accident): No indication of new CVA. - Continue ASA, simvastatin (4) History of myocardial infarction: - Continue ASA, metoprolol, lisinopril, simvastatin (5) Type 2 diabetes mellitus: A1c was 5.6% this admission. - Hold glipizide - Sliding scale insulin (6) Hypertension: BP is 125/75 today. As high as 180/70. - Continue lisinopril -> reduced dose to 20mg BID as TID above maximum recommended dose - Holding HCTZ initially; will restart tomorrow. (7) Benign prostatic hyperplasia: No LUTS noted. - Continue tamsulosin and finasteride (8) Osteoarthritis: Noted history of this. - PT/OT evals (9) Dementia: Unclear baseline, but pleasant and conversant for me today. - Continue memantine 10mg BID (10) DVT prophylaxis: Lovenox 40 mg SQ daily Admission and Anticipated Discharge Date Admission Date: December 23, 2019 Subjective No major concerns today. Reports some cough, but no sputum production. Reports no fevers/chills, chest pain, shortness of breath, abdominal pain, nausea, or vomiting. Physical Exam Constitutional: WD/WN, vitals as above Eyes: EOM intact bilaterally; no conjunctival abnormality ENMT: external ear and nose normal, oropharynx normal Neck: trachea midline, no thyromegaly normal visual inspection Respiratory: normal respiratory effort, lungs clear to auscultation no respiratory distress Cardiovascular: RRR, no murmur, no edema Gastrointestinal (Abdomen): Inspection/Auscultation: abdomen normal to inspection; abdomen not distended Musculoskeletal: no cyanosis or clubbing, extremities motor strength 5/5 Skin: no rashes, warm and dry Neurologic: moves all extremities and awake Psychiatric: Orientation: alert, oriented to person and cooperative Results & Data Results & [facility] ([facility]) Vital Signs (Past 12 Hours) Vital Signs Temp Pulse Pulse Resp BP Pulse Ox 12/24/19 12:50 36.9 C 85 18 125/74 95 12/24/19 10:18 79 18 163/89 H 95 12/24/19 07:51 79 12/24/19 06:44 37.0 C 81 17 181/75 H 94 12/24/19 03:58 36.9 C 89 18 147/76 H 95 12/24/19 02:21 68 PG Care Time/CCT Total # of Minutes Spent Total Time Spent with Patient: Total time spent is greater than 50% in coordination of care (as documented) at patient's floor/unit and/or counseling patient: Coding Level of Care Code 69934 Subseq Hosp Care Lvl 3 Diagnoses Community acquired pneumonia J18.9 Generalized weakness R53.1 History of CVA (cerebrovascular accident) Z86.73 History of myocardial infarction I25.2 Type 2 diabetes mellitus E11.9 Hypertension I10 Benign prostatic hyperplasia N40.0 Osteoarthritis M19.90 Dementia F03.90 DVT prophylaxis Z29.9
--- NOTE | 2019-12-24 13:39 | Pulmonary Consultation ---
Date of Consultation December 24, 2019 Assessment & Plan (1) Community acquired pneumonia: 74-year-old male with a past medical history of myocardial infarction, hypertension, dementia and previous myocardial infarction who presented to the hospital due to dizziness and apparent hypoxemia. Patient appears very stable at present. Would recommend performing a two-step prior to discharging him home to see if he needs supplemental oxygen. I do not think a bronchoscopy at this time is warranted as the left lower lobe infiltrate likely represents a resolving pneumonia and possible atelectasis. Aspiration pneumonia is possible, but a left lower lobe infiltrate would be an unusual di stribution. Less likely to be a malignancy. Recommend speech language pathology to evaluate for aspiration. I would recommend a CT of his chest in 8 to 10 weeks to follow-up on this abnormality. Recommend pulmonary toilet such as flutter valve, ambulation and incentive spirometry. Recommend a 7-day course of antibiotics for community-acquired pneumonia. I think he is safe to be discharged home from pulmonary standpoint. Pulmonary is available should the need arise. Please call us with questions. Thank you for the consult. (2) Atelectasis of left lung: (3) Mucus plugging of bronchi: History of Present Illness Reason for Consultation: Left lower lobe opacity with possible endobronchial lesion Requesting Physician: Dr. Aubrey Gotti Attending Physician: Aubrey Gotti MD History of Present Illness 74-year-old male with a past medical history of dementia, osteoarthritis, myocardial infarction and diabetes mellitus type 2 who presented to the hospital due to dizziness. The patient is a poor historian and often cannot recall events or why he is in the hospital. He thinks that he was dizzy and his sister brought him in. He reports that he lives with his sister. There is a bedside nurse who is acting as a sitter and indicates that overnight he was occasionally confused and often pulling at his Hogan catheter. At one point he tried to remove his IV during the middle the night. He seems pleasant this afternoon and is smiling when asking questions. 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 He says he had dogs all of his life, but does not have any pets currently. Denies any history of tobacco abuse. He denies any significant cough, fevers or chills. No night sweats. On presentation to the hospital his white count was 8,500. Chemistries were all generally unremarkable aside for some mild hypokalemia 3.4. Alkaline phosphatase was 128. Troponin was mildly elevated at 0.065. Procalcitonin was 0.05. Urine studies were negative for signs of infection. There was 1+ ketone, 2+ blood, 2+ protein and elevated urine specific gravity. Blood and urine cultures negative. A CT of his chest was obtained which did not demonstrate any evidence of PE. Focal opacification of the left lower lobe bronchus with partial opacification of the distal left lower lobe bronchi was noted. It favored mucus plugging, however that, the volume loss is concerning for possible occult obstructive lesion and a bronchoscopy was recommended by radiology. The patient is currently on Rocephin and azithromycin. Of note, per review of the H&P, the admitting hospitalist discussed with the patient's VINICIO Wilde who indicated the patient was very weak and had a temperature of 99.4. He has also been having a "croupy cough" for the last couple days. She notes that he usually can walk with a walker and can transfer without assistance. The highest temperature recorded in our electronic medical record is 99.3 at 10:50 AM on 12/23/2019. He was also 88% on admission with his saturations. Allergies Allergy/AdvReac Type Severity Reaction Status Date / Time No Known Allergies Allergy Unverified 12/23/19 14:14 Home Medications Home Medications Medication Instructions Recorded Confirmed Type Calm Tabs 4 tab PO HS 12/23/19 12/23/19 History Herba Vision Lutein & Bilberry 1 cap PO BID 12/23/19 12/23/19 History 6mg/20mg Prostavan Prostate Support Gel 1 cap PO QDL 12/23/19 12/23/19 History Capsules aspirin 81 mg PO QAM 12/23/19 12/23/19 History chlorpheniramine-dextromethorp 1 tab PO Q6H PRN 12/23/19 12/23/19 History [Coricidin HBP Cough and Cold] docusate sodium [Colace] 100 mg PO BID 12/23/19 12/23/19 History finasteride 5 mg PO QDL 12/23/19 12/23/19 History glipizide 2.5 mg PO BID 12/23/19 12/23/19 History hydrochlorothiazide 25 mg PO QDL 12/23/19 12/23/19 History latanoprost 1 drp OPB HS 12/23/19 12/23/19 History lisinopril 20 mg PO TID 12/23/19 12/23/19 History melatonin 10 mg PO HS 12/23/19 12/23/19 History memantine 10 mg PO BID 12/23/19 12/23/19 History multivitamin 1 tab PO QAM 12/23/19 12/23/19 History simvastatin 40 mg PO HS 12/23/19 12/23/19 History tamsulosin 0.8 mg PO HS 12/23/19 12/23/19 History timolol maleate 1 drp OPB QAM 12/23/19 12/23/19 History metoprolol tartrate 25 mg PO BID 12/24/19 12/24/19 History Patient History Medical History Age-related macular degeneration Benign prostatic hyperplasia CVA (cerebral vascular accident) Hypertension Liver laceration Osteoarthritis TIA (transient ischemic attack) Type 2 diabetes mellitus Surgical History No pertinent past surgical history Social History Preferred Language: Chinese Communication Ability: Effective 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 Other Information That Helps Us Care for You: No Feels Safe at Home: Yes Smoking Status: Never smoker Do You Dip or Chew Tobacco: No ; Second Hand Expo sure: Yes ; Hx Alcohol Use: Yes Alcohol type: beer Hx Substance Use: No Review of Systems Review of Systems: All systems reviewed & are unremarkable except as noted in HPI & below Physical Exam Constitutional: WD/WN, vitals as above Eyes: PERRL, conjunctivae normal, anicteric sclerae ENMT: external ear and nose normal, oropharynx normal Neck: trachea midline, no thyromegaly Respiratory: normal respiratory effort, lungs clear to auscultation Cardiovascular: RRR, no murmur, no edema Gastrointestinal (Abdomen): normal bowel sounds, soft, nontender, no hepatosplenomegaly Musculoskeletal: no cyanosis or clubbing, extremities motor strength 5/5 Skin: no rashes, warm and dry Neurologic: PERRL, EOMI, accommodation nl, no face palsy, no dysarthria Psychiatric: The patient told me the year is 2018, [place] is the president, he felt that the season was spring time. He was unable to tell me the city or state that we are located in. He was able to tell me that we are in a hospital, but unable to tell me which hospital. Results & Data Results & Data ([facility]) Vital Signs (Past 12 Hours) Vital Signs Temp Pulse Pulse Resp BP Pulse Ox 12/24/19 12:50 98.4 F 85 18 125/74 95 12/24/19 10:18 79 18 163/89 H 95 12/24/19 07:51 79 12/24/19 06:44 98.6 F 81 17 181/75 H 94 12/24/19 03:58 98.4 F 89 18 147/76 H 95 12/24/19 02:21 68 I personally reviewed patient's labs, chest imaging and previous notes. PG Care Time/CCT Total # of Minutes Spent Total Time Spent with Patient: Total time spent is greater than 50% in coordination of care (as documented) at patient's floor/unit and/or counseling patient: Coding Level of Care Code 05593 Initial Inpt Care Lvl 2 Diagnoses Community acquired pneumonia J18.9 Atelectasis of left lung J98.11 Mucus plugging of bronchi J98.09
[2019-12-24] MEDS: cefTRIAXone SODIUM 2,000 MG in DEXTROSE 5% 50 ML IV SCH (14:04)
[2019-12-24] MEDS: SIMVASTATIN 40 MG TAB PO SCH (20:13)
[2019-12-24] MEDS: MELATONIN 3 MG TAB PO SCH (20:14)
[2019-12-24] MEDS: TAMSULOSIN HCL 0.4 MG CAP PO SCH (20:14)
[2019-12-24] MEDS: LATANOPROST 0.005% OP SOLN 2.5 ML BTL OPB SCH (20:15)
[2019-12-25 07:43] LABS: Hematocrit (blood only) 39.2 % (42-52); Hemoglobin 12.8 g/dL (14.0-18.0); Mean Corpuscular Hemoglobin 30.1 pg (25-34); Mean Corpuscular Hgb Conc 32.7 g/dL (32-36); Mean Corpuscular Volume 92.2 fL (80-100); Mean Platelet Volume 11.2 fL (7.4-10.4); Platelet Count 137 K/uL (130-400); RDW Coefficient of Variation 13.9 % (11.5-14.5); RDW Standard Deviation 46.7 fL (36.4-46.3); Red Blood Count 4.25 M/uL (4.7-6.1); White Blood Count 8.35 K/uL (4.8-10.8)
[2019-12-25 08:24] LABS: Est GFR (Non-African American) 82.8; Potassium 3.3 mmol/L (3.5-5.1)
[2019-12-25 08:25] LABS: BUN Creatinine Ratio 16.1 (10-20); Calcium 8.3 mg/dl (8.5-10.1); Creatinine Clr Calc Pharmacy 90.5 ml/min; Magnesium 2.1 mg/dl (1.8-2.4); Phosphorus 2.3 mg/dl (2.5-4.9)
[2019-12-25] MEDS: AZITHROMYCIN 250 MG TAB PO SCH (08:30)
[2019-12-25] MEDS: MULTIVITAMIN TAB PO SCH (08:30)
[2019-12-25] MEDS: ASPIRIN 81 MG ECTAB PO SCH (08:30)
[2019-12-25] MEDS: guaiFENesin 600 MG TABCR PO SCH (08:30)
[2019-12-25] MEDS: lisinopriL 20 MG TAB PO SCH (08:31)
[2019-12-25] MEDS: MEMANTINE HCL 10 MG TAB PO SCH (08:31)
[2019-12-25] MEDS: DOCUSATE SODIUM 100 MG CAP PO SCH (08:31)
[2019-12-25] MEDS: METOPROLOL TARTRATE 25 MG TAB PO SCH (08:31)
[2019-12-25] MEDS: TIMOLOL GFS 0.5% OPH SOLN 74 DROPS/5 ML BTL OPB SCH (08:32)
[2019-12-25] MEDS: INSULIN ASPART 100 UNITS/ML 3 ML PEN SC SCH ×2 (09:16→14:21)
[2019-12-25] MEDS ORDERED: POTASSIUM PHOS 3 MMOL/1 ML INFUSION IV STA (12:26)
[2019-12-25] MEDS ORDERED: POTASSIUM CHLORIDE 20 MEQ TABCR PO STA (12:26)
[2019-12-25] MEDS: FINASTERIDE 5 MG TAB PO SCH (12:58)
[2019-12-25] MEDS ORDERED: POTASSIUM PHOSPHATE 15 MMOL in SODIUM CHLORIDE 0.9% 250 ML IV ONE (13:00)
--- NOTE | 2019-12-25 14:07 | Discharge Summary ---
Date of Service December 25, 2019 Admission HPI Per Admitting Provider Michael Denny is a 74 year old male who presents to the ER with generalized weakness after his sister was unable to get him off the toilet this morning. The patient was seen in the ER and no family present at the time of admission. He was unsure how he came to the ER, thinks his sister brought him in but isn't completely sure. Notes he has been living with her on and off for some time. He notes he is here because she was worried about him although he reports feeling well and notes no current issues. No shortness of breath, cough, fever, chills. Discussed with his POHu Wilde. She reports calling EMS as patient was unable to get off the toilet this morning. Appeared to be generally weak. Went clammy and pale with temperature of 99.4. He had been having a "croupy cough" for the last couple of days. usually can walk around but uses a walker. Transfers without assistance. As a background [facility] [place] , exposed to agent orange. In 2003 while undergoing repair for a ?liver laceration he had a heart attack and cardiac arrest on the table apparently requiring open heart massage. Stroke in September 2014 with residual left sided numbness and weakness, possibly vision loss from same stroke. He was living in [place] at the time but due to dementia had to move up to live with his sister in [place], [place] in February the same year. Generally has good strength but difficulty concentrating and short term memory loss. Recently now living with their cousin in [place] as his sister was recently admitted to hospital with snyder and is recovering from this but also the main medicare interviewer for Michael. No fall for the last 6 months. She report he is for full code and this was confirmed with the patient he wishes to have CPR in the event of a cardiac arrest. [facility] and had normal lab work but hasnt had any paperwork for that. Telehealth visit. Undergoing workup with Dr Chirinos and possible need for TURP for BPH Principal Diagnosis Community-acquired pneumonia Discharge Exam Constitutional WD/WN, vitals as above Eyes EOM intact bilaterally; no conjunctival abnormality ENMT external ear and nose normal, oropharynx normal Neck trachea midline, no thyromegaly normal visual inspection Respiratory normal respiratory effort, lungs clear to auscultation no respiratory distress Cardiovascular RRR, no murmur, no edema Gastrointestinal (Abdomen) Inspection/Auscultation: abdomen normal to inspection; abdomen not distended Musculoskeletal no cyanosis or clubbing, extremities motor strength 5/5 Skin no rashes, warm and dry Neurologic moves all extremities and awake Psychiatric Orientation: alert, oriented to person and cooperative Discharge Data Allergies Allergy/AdvReac Type Severity Reaction Status Date / Time No Known Allergies Allergy Unverified 12/23/19 14:14 Consultations 12/23/19 13:46 ED Decision to Admit Stat 12/23/19 13:56 Consult Health Information Management Stat 12/23/19 15:15 Consult Health Information Management Routine 12/23/19 18:32 Consult Pulmonology Routine Ordered Studies 12/23/19 12:30 CT angio chest PE protocol Stat 12/23/19 14:56 CT head/brain wo con Stat Hospital Course (1) Community acquired pneumonia: CT chest on 12/22 showed left lower lobe bronchus with partial opacification of the distal left lower lobe bronchi. - Was on IV ceftriaxone and azithromycin - Pulmonology consulted - No need for bronchoscopy; felt this was all pneumonia. - BARMAID consult pending for concern for aspiration. Did very well. No aspiration at all on video exam. - Finish course on oral abx x 3 more days. Omnicef and azithromycin. (2) Generalized weakness: Suspect due to CAP as above. - Did well with PT/OT. Return home where he has 06/02 [facility]. (3) History of CVA (cerebrovascular accident): No indication of new CVA. - Continue ASA, simvastatin (4) History of myocardial infarction: - Continue ASA, metoprolol, lisinopril, simvastatin (5) Type 2 diabetes mellitus: A1c was 5.6% this admission. - Hold glipizide - Sliding scale insulin (6) Hypertension: BP is 125/75 today. As high as 180/70. - Continue lisinopril -> reduced dose to 20mg BID as TID above maximum recommended dose - Holding HCTZ initially; will restart tomorrow. (7) Benign prostatic hyperplasia: No LUTS noted. - Continue tamsulosin and finasteride (8) Osteoarthritis: Noted history of this. - PT/OT evals (9) Dementia: Unclear baseline, but pleasant and conversant for me today. - Continue memantine 10mg BID (10) DVT prophylaxis: Lovenox 40 mg SQ daily Total Time Total Time Spent Total Time Spent (In Minutes): 35 Discharge Plan Discharge Items Patient Disposition: Home - Home Health Services Reason For Visit: COMMUNITY ACQUIRED PNEUMONIA Discharge Diagnosis: Community-acquired pneumonia Activity: Resume your previous activity Non-emergency contact: Primary Care Provider Call non-emergency contact if: your symptoms worsen and your temperature is above 101 Follow-up/Referrals: Dr. Jones Chirinos [Other] - 01/01/20 3:15 pm (Please, follow up with Dr. Chirinos in the [facility] [facility] on MondayDecember 31 at 3:15 pm. *If you need to change this appointment, call the office at [phone].) Diet: Carb Consistent or DM2 Addtl Attending Provider Instructions: Ms. Denny was admitted for weakness and found to have a pneumonia. We were able to treat the infection with antibiotics which helped Mr. Denny feel better. Additionally, the lung doctors saw him and felt he was doing well. He should get a repeat chest x-ray in 4-6 weeks to be sure it goes away. Finally, physical therapy and occupational therapy both saw Mr. Denny and felt he was doing well. I did lower his lisinopril slightly because his blood pressure was normal in the hospital. This can be re-visited by his PCP if his blood pressure goes up at home. Pending Studies at Discharge: No Stand-Alone Forms: My [facility], Smoking Cessation Medications and DC Order Prescriptions: New azithromycin [Zithromax] 250 mg Tablet 250 mg PO QAM Qty: 2 RF: 0 cefdinir 300 mg capsule 300 mg PO BID Qty: 7 RF: 0 Continued multivitamin Tablet 1 tab PO QAM RF: 0 latanoprost 0.005 % Drops 1 drp OPB HS RF: 0 simvastatin 80 mg Tablet 40 mg PO HS RF: 0 aspirin 81 mg Tablet,Delayed Release (Dr/Ec) 81 mg PO QAM RF: 0 tamsulosin 0.4 mg Capsule 0.8 mg PO HS RF: 0 timolol maleate 0.25 % Drops 1 drp OPB QAM RF: 0 docusate sodium [Colace] 100 mg Capsule 100 mg PO BID RF: 0 glipizide 5 mg Tablet 2.5 mg PO BID RF: 0 Coricidin HBP Cough and Cold 4-30 mg Tablet 1 tab PO Q6H PRN (Reason: Cough) RF: 0 hydrochlorothiazide 25 mg Tablet 25 mg PO QDL RF: 0 finasteride 5 mg Tablet 5 mg PO QDL RF: 0 memantine 10 mg Tablet 10 mg PO BID RF: 0 melatonin 10 mg Tablet 10 mg PO HS RF: 0 Calm Tabs 4 tab PO HS RF: 0 Herba Vision Lutein & Bilberry 6mg/20mg 1 cap PO BID RF: 0 Prostavan Prostate Support Gel Capsules 1 cap PO QDL RF: 0 metoprolol tartrate 50 mg Tablet 25 mg PO BID RF: 0 Changed lisinopril 20 mg Tablet 20 mg PO BID Qty: 0 RF: 0 Discharge Orders: Discharge Order (Routine); Ordered 12/25/19 Ordered By: Aubrey Gotti Admission Data Admit Date/Time: 12/23/19 14:14 Attending Provider: Aubrey Gotti Admit Provider: Alfredito Meek Primary Care Provider: Jones Chirinos Other Providers: Ricardo Mannnig ; Aubrey Gotti Coding Level of Care Code D/C Day Management >30 mins Diagnoses Community acquired pneumonia J18.9 Generalized weakness R53.1 History of CVA (cerebrovascular accident) Z86.73 History of myocardial infarction I25.2 Type 2 diabetes mellitus E11.9 Hypertension I10 Benign prostatic hyperplasia N40.0 Osteoarthritis M19.90 Dementia F03.90 DVT prophylaxis Z29.9
[2019-12-25] MEDS: cefTRIAXone SODIUM 2,000 MG in DEXTROSE 5% 50 ML IV SCH (14:32)
== END 2019-12-25 17:14 | disposition home health service (06) | DRG 195 ==
LOC: ED 10:41 → SUATTDRO 14:14 → 2W 14:14